=== PATIENT | male | born 1980 | race Two or more races ===

== ENCOUNTER 2018-10-29 08:55 | Emergency (ER) | payer SELFPAY ==
[~2018-10-29] VITALS: Ht 165.1 cm; Wt 81.6 kg
[2018-10-29] MEDS ORDERED: IV NORMAL SALINE 1000ML BAG 1,000 ML IV SCH (09:05)
--- NOTE | 2018-10-29 09:10 | PHYS DOC ---
Adult General Chief Complaint Chief Complaint: ABDOMINAL PAIN HPI HPI Patient is a 38 year old male who presents with complaining of abdominal pain. Patient complaining of sudden onset of right lower quadrant abdominal pain with radiation to right flank since 4 AM today . Patient states the pain is a constant aching pain with episodes of sharp pain without urinary symptoms, fever and chills, nausea and vomiting. Patient states he had 2 episodes of vomiting yesterday without pain. Patient denies history of kidney stone. Review of Systems Review of Systems Constitutional: Denies fever or chills [] Eyes: Denies change in visual acuity, redness, or eye pain [] HENT: Denies nasal congestion or sore throat [] Respiratory: Denies cough or shortness of breath [] Cardiovascular: No additional information not addressed in HPI [] GI: Reports abdominal pain, nausea, vomiting, denies bloody stools or diarrhea [] : Denies dysuria or hematuria [] Musculoskeletal: Denies back pain or joint pain [] Integument: Denies rash or skin lesions [] Neurologic: Denies headache, focal weakness or sensory changes [] Endocrine: Denies polyuria or polydipsia [] All other systems were reviewed and found to be within normal limits, except as documented in this note. Current Medications Current Medications Current Medications Medications (Trade) Dose Ordered Sig/Lizet Start Time Stop Time Status Last Admin Dose Admin Ketorolac Tromethamine (Toradol 30mg Vial) 30 mg 1X ONCE 10/29/18 09:15 10/29/18 09:29 DC 10/29/18 09:31 30 MG Morphine Sulfate (Morphine Sulfate) 4 mg 1X ONCE 10/29/18 10:00 10/29/18 10:01 DC 10/29/18 10:02 4 MG Ondansetron HCl (Zofran) 4 mg 1X ONCE 10/29/18 09:15 10/29/18 09:29 DC 10/29/18 09:30 4 MG Potassium Chloride (Klor-Con) 40 meq 1X ONCE 10/29/18 10:30 10/29/18 10:34 DC 10/29/18 10:40 40 MEQ Sodium Chloride 1,000 ml @ 1,000 mls/hr Q1H 10/29/18 09:05 10/29/18 10:04 DC 10/29/18 09:31 1,000 MLS/HR Tamsulosin HCl (Flomax) 0.4 mg 1X STAT 10/29/18 10:26 10/29/18 10:34 DC 10/29/18 10:40 0.4 MG Allergies Allergies Allergies Coded Allergies Type Severity Reaction Last Updated Verified No Known Drug Allergies 10/29/18 No Physical Exam Physical Exam Constitutional: Well developed, well nourished, moderate distress, non-toxic appearance. [] HENT: Normocephalic, atraumatic, oropharynx moist. Eyes: PERRLA, EOMI, conjunctiva normal, no discharge. [] Neck: Normal range of motion, no tenderness, supple, no stridor. [] Cardiovascular:Heart rate regular rhythm, no murmur [] Lungs & Thorax: Bilateral breath sounds clear to auscultation [] Abdomen: Bowel sounds normal, soft, no tenderness, no masses, no pulsatile masses. [] Skin: Warm, dry, no erythema, no rash. [] Back: No tenderness, no CVA tenderness. [] Extremities: No tenderness, no cyanosis, no clubbing, ROM intact, no edema. [] Neurologic: Alert and oriented X 3, normal motor function, normal sensory function, no focal deficits noted. [] Psychologic: Affect normal, judgement normal, mood normal. [] Current Patient Data Vital Signs Vital Signs Date Time Temp Pulse Resp B/P (MAP) Pulse Ox O2 Delivery O2 Flow Rate FiO2 10/29/18 10:02 16 10/29/18 09:53 65 148/90 (109) 98 Room Air 10/29/18 09:01 97.4 97.4 Lab Values Laboratory Tests Test 10/29/18 09:00 10/29/18 09:12 Urine Collection Type Unknown Urine Color Yellow Urine Clarity Clear Urine pH 6.0 Urine Specific [place]gett 1.015 Urine Protein Negative mg/dL (NEG-TRACE) Urine Glucose (UA) Negative mg/dL (NEG) Urine Ketones (Stick) Negative mg/dL (NEG) Urine Blood Moderate (NEG) Urine Nitrite Negative (NEG) Urine Bilirubin Negative (NEG) Urine Urobilinogen Dipstick 0.2 mg/dL (0.2 mg/dL) Urine Leukocyte Esterase Negative (NEG) Urine RBC 3-5 /HPF (0-2) Urine WBC 5-10 /HPF (0-4) Urine Squamous Epithelial Cells Occ /LPF Urine Bacteria Few /HPF (0-FEW) Urine Mucus Mod /LPF White Blood Count 10.0 x10^3/uL (4.0-11.0) Red Blood Count 5.49 x10^6/uL (4.30-5.70) Hemoglobin 16.5 g/dL (13.0-17.5) Hematocrit 47.7 % (39.0-53.0) Mean Corpuscular Volume 87 fL (79-100) Mean Corpuscular Hemoglobin 30 pg (25-35) Mean Corpuscular Hemoglobin Concent 35 g/dL (31-37) Red Cell Distribution Width 12.6 % (11.5-14.5) Platelet Count 168 x10^3/uL (140-400) Neutrophils (%) (Auto) 75 % (31-73) H Lymphocytes (%) (Auto) 17 % (24-48) L Monocytes (%) (Auto) 8 % (0-9) Eosinophils (%) (Auto) 0 % (0-3) Basophils (%) (Auto) 0 % (0-3) Neutrophils # (Auto) 7.4 x10^3uL (1.8-7.7) Lymphocytes # (Auto) 1.7 x10^3/uL (1.0-4.8) Monocytes # (Auto) 0.8 x10^3/uL (0.0-1.1) Eosinophils # (Auto) 0.0 x10^3/uL (0.0-0.7) Basophils # (Auto) 0.0 x10^3/uL (0.0-0.2) Sodium Level 144 mmol/L (136-145) Potassium Level 3.2 mmol/L (3.5-5.1) L Chloride Level 108 mmol/L (98-107) H Carbon Dioxide Level 25 mmol/L (21-32) Anion Gap 11 (6-14) Blood Urea Nitrogen 15 mg/dL (8-26) Creatinine 0.9 mg/dL (0.7-1.3) Estimated GFR (Cockcroft-Gault) 94.4 BUN/Creatinine Ratio 17 (6-20) Glucose Level 106 mg/dL (70-99) H Calcium Level 8.2 mg/dL (8.5-10.1) L Total Bilirubin 1.3 mg/dL (0.2-1.0) H Aspartate Amino Transferase (AST) 25 U/L (15-37) Alanine Aminotransferase (ALT) 43 U/L (16-63) Alkaline Phosphatase 64 U/L (46-116) Total Protein 6.7 g/dL (6.4-8.2) Albumin 3.7 g/dL (3.4-5.0) Albumin/Globulin Ratio 1.2 (1.0-1.7) Lipase 78 U/L (73-393) Laboratory Tests 10/29/18 09:12 Laboratory Tests 10/29/18 09:12 EKG EKG [] Radiology/Procedures Radiology/Procedures [][facility] [address] [place] [address] IMAGING REPORT Signed PATIENT: DIMITRIS NOE ACCOUNT: [id number] : 1980 LOCATION: ER AGE: 38 SEX: M EXAM STATUS: PRE ER ORD. PHYSICIAN: BRIAN TEMPLE MD REASON: right lower quadrant pain since this morning with radiation to right flank PROCEDURE: CT ABDOMEN PELVIS WO CONTRAST Examination: CT of the abdomen pelvis without contrast History: History of right lower quadrant abdominal pain Comparison: None available Technique: Axial CT images of the abdomen pelvis were performed without contrast. Coronal and sagittal reformats are performed PQRS Compliance Statement: One or more of the following individualized dose reduction techniques were utilized for this examination: 1. Automated exposure control 2. Adjustment of the mA and/or kV according to patient size 3. Use of iterative reconstruction technique Findings: Mild bibasal lung airspace opacities likely atelectasis. No evidence of free air identified in the abdomen. The evaluation of the solid organs is limited due to lack of IV contrast. The evaluation of the bowel is limited due to lack of oral contrast. The visualized noncontrasted liver, spleen, adrenals grossly appears unremarkable. The gallbladder is mildly distended. The stomach is mildly distended. The visualized pancreas grossly appears unremarkable. The small bowel is nondilated. Feces and gas noted in the colon. The appendix is normal. Moderate right-sided hydronephrosis identified. There is a 3.5 mm calculus identified in the proximal right ureter with mild to moderate surrounding inflammatory fat stranding about the right renal pelvis. The urinary bladder is mildly distended. The caliber of the aorta grossly appears unremarkable. Mild degenerative changes thoracal lumbar spine. Left L5 spondylolysis. Impression: 1. 3.5 mm calculus identified in the proximal right ureter causing moderate right-sided hydronephrosis. There is mild to moderate fat stranding identified about the right renal pelvis DICTATED and SIGNED BY: MICHAEL DAVISON MD DATE: 10/29/18 1002 Course & Med Decision Making Course & Med Decision Making Pertinent Labs and Imaging studies reviewed. (See chart for details) Evaluation of patient in ER showed 38-year-old male patient with complaining of sudden loss of right abdominal pain with radiation to right flank since this morning and history of vomiting yesterday. Patient treated with IV fluid, Zofran, Toradol and morphine with improvement of his pain. Labs showed UTI. CT of abdomen and pelvis showed right mid ureter stone. Patient was advised to strain his urine and follow-up with urologist on-call and increase fluid intake and activity. Dragon Disclaimer Dragon Disclaimer This electronic medical record was generated, in whole or in part, using a voice recognition dictation system. Departure Departure Impression: Primary Impression: Renal colic on right side Additional Impressions: Ureterolithiasis Hypokalemia Urinary tract infection Disposition: 01 HOME, SELF-CARE (at 1046) Condition: IMPROVED Referrals: LORELEI GARCIA MD Patient Instructions: Diet for Kidney Stones, Hypokalemia, Kidney Stones, Urinary Tract Infection, Urine Strainer Additional Instructions: Drink plenty of liquids Follow-up with your primary care physician in 3-5 days Return to ER if not getting better Follow up with on-call urologist in 2 or 3 days Strain all of your urine Scripts Sulfamethoxazole/Trimethoprim (BACTRIM DS TABLET) 1 Each Tablet 1 TAB PO BID for infection, #14 TAB Prov: BRIAN TEMPLE MD 10/29/18 Hydrocodone/Apap 5-325 (NORCO 5-325 TABLET) 1 Each Tablet 1 TAB PO PRN Q6HRS PRN for PAIN, #12 TAB 0 Refills Prov: BRIAN TEMPLE MD 10/29/18 Ibuprofen (IBUPROFEN) 800 Mg Tablet 800 MG PO PRN Q8HRS PRN for INFLAMMATION, #20 TAB Prov: BRIAN TEMPLE MD 10/29/18 Tamsulosin Hcl (FLOMAX) 0.4 Mg Cap.er.24h 1 CAP PO DAILY, #14 CAP 0 Refills Prov: BRIAN TEMPLE MD 10/29/18 Problem Qualifiers BRIAN TEMPLE MD Oct 29, 2018 09:10
[2018-10-29] MEDS ORDERED: KETOROLAC 30 MG/ML VIAL. IV ONE (09:15)
[2018-10-29] MEDS ORDERED: ONDANSETRON PF 4 MG/2 ML VIAL. IV ONE (09:15)
[2018-10-29 09:16] LABS: BILIRUBIN,URINE NEGATIVE (NEG); CLARITY,URINE CLEAR; COLOR,URINE YELLOW; NITRITE,URINE NEGATIVE (NEG); PROTEIN,URINE NEGATIVE (NEG-TRACE); UROBILINOGEN,URINE 0.2 mg/dL (0.2 mg/dL)
[2018-10-29 09:34] LABS: BASO % 0 % (0-3); EOS % 0 % (0-3); HEMATOCRIT 47.7 % (39.0-53.0); HEMOGLOBIN 16.5 g/dL (13.0-17.5); LYMPH # 1.7 x10^3/uL (1.0-4.8); LYMPH % 17 % (24-48); MEAN CORPUSCULAR HEMOGLOBIN 30 pg (25-35); MEAN CORPUSCULAR HGB CONC 35 g/dL (31-37); MEAN CORPUSCULAR VOLUME 87 fL (79-100); MONO # 0.8 x10^3/uL (0.0-1.1); MONO % 8 % (0-9); NEUT # 7.4 x10^3uL (1.8-7.7); NEUT % 75 % (31-73); PLATELET COUNT 168 x10^3/uL (140-400); RED BLOOD COUNT 5.49 x10^6/uL (4.30-5.70); RED CELL DISTRIBUTION WIDTH 12.6 % (11.5-14.5)
[2018-10-29 09:48] LABS: CALCIUM 8.2 mg/dL (8.5-10.1); CREATININE 0.9 mg/dL (0.7-1.3); GFR 94.4; POTASSIUM 3.2 mmol/L (3.5-5.1)
[2018-10-29 09:50] LABS: ALBUMIN 3.7 g/dL (3.4-5.0)
[2018-10-29 09:53] VITALS: BP 148/90
[2018-10-29] MEDS ORDERED: MORPHINE SULFATE 4 MG/ML VIAL. IV ONE (10:00)
[2018-10-29 10:04] LABS: ALBUMIN/GLOBULIN RATIO 1.2 (1.0-1.7); TOTAL BILIRUBIN 1.3 mg/dL (0.2-1.0); TOTAL PROTEIN 6.7 g/dL (6.4-8.2)
--- NOTE | 2018-10-29 10:11 | RAD ---
Examination: CT of the abdomen pelvis without contrast History: History of right lower quadrant abdominal pain Comparison: None available Technique: Axial CT images of the abdomen pelvis were performed without contrast. Coronal and sagittal reformats are performed PQRS Compliance Statement: One or more of the following individualized dose reduction techniques were utilized for this examination: 1. Automated exposure control 2. Adjustment of the mA and/or kV according to patient size 3. Use of iterative reconstruction technique Findings: Mild bibasal lung airspace opacities likely atelectasis. No evidence of free air identified in the abdomen. The evaluation of the solid organs is limited due to lack of IV contrast. The evaluation of the bowel is limited due to lack of oral contrast. The visualized noncontrasted liver, spleen, adrenals grossly appears unremarkable. The gallbladder is mildly distended. The stomach is mildly distended. The visualized pancreas grossly appears unremarkable. The small bowel is nondilated. Feces and gas noted in the colon. The appendix is normal. Moderate right-sided hydronephrosis identified. There is a 3.5 mm calculus identified in the proximal right ureter with mild to moderate surrounding inflammatory fat stranding about the right renal pelvis. The urinary bladder is mildly distended. The caliber of the aorta grossly appears unremarkable. Mild degenerative changes thoracal lumbar spine. Left L5 spondylolysis. Impression: 1. 3.5 mm calculus identified in the proximal right ureter causing moderate right-sided hydronephrosis. There is mild to moderate fat stranding identified about the right renal pelvis
[2018-10-29] MEDS ORDERED: TAMSULOSIN 0.4 MG CAP.ER.24H. PO STA (10:26)
[2018-10-29] MEDS ORDERED: POTASSIUM CHLORIDE 20 MEQ TABLET.ER. PO ONE (10:30)
[2018-10-29 10:46] LABS: BACTERIA,URINE FEW /HPF (0-FEW); SQUAMOUS EPITHELIAL CELL,UR OCC /LPF
[2018-10-29] MEDS ORDERED: TAMS0.4C97 PO (10:51)
[2018-10-29] MEDS ORDERED: IBUP-1060 PO (10:51)
[2018-10-29] MEDS ORDERED: HYDR-3164 PO (10:51)
[2018-10-29] MEDS ORDERED: SULF1TAB24 PO (10:56)
== END 2018-10-29 10:50 | disposition home or self-care (01) ==
LOC: ER 08:55
DX: N13.2 Hydronephrosis with renal and ureteral calculous obstruction (principal); E87.6 Hypokalemia; R11.2 Nausea with vomiting, unspecified; M47.896 Other spondylosis, lumbar region
CPT/HCPCS: 36415; 74176; 80053; 81001; 83690; 85025; 87086; 96361; 96374; 96375; 99285; J1885; J2270; J2405; J7030